=== PATIENT | male | born 1990 | race Caucasian/White ===

== ENCOUNTER 2018-09-13 12:55 | Emergency (ER) | payer SELFPAY ==
[~2018-09-13] VITALS: Ht 177.8 cm; Wt 90.9 kg
[2018-09-13 13:02] VITALS: BP 139/80; PULSE 77; TEMP 98.2
[2018-09-13] MEDS ORDERED: NORCO 325 MG-51 TAB PO (14:39)
== END 2018-09-13 14:53 | disposition home or self-care (01) ==
LOC: COL.ER 12:55
DX: S93.402A Sprain of unspecified ligament of left ankle, initial encounter (principal); X50.0XXA Overexertion from strenuous movement or load, initial encounter; Y92.59 Other trade areas as the place of occurrence of the external cause

== ENCOUNTER → 2018-11-13 | Outpatient (CLI) | payer OTHER ==
[~2018-11-13] MED LIST: NORCO 325 MG-51 TAB PO
== END ==
LOC: COL.RAD 08:14
DX: S93.402A Sprain of unspecified ligament of left ankle, initial encounter (principal); S86.012D Strain of left Achilles tendon, subsequent encounter; M76.72 Peroneal tendinitis, left leg; S93.432A Sprain of tibiofibular ligament of left ankle, initial encounter

== ENCOUNTER 2018-11-14 09:55 | Outpatient (RCR) | payer OTHER | END 2018-12-11 15:16 | disposition home or self-care (01) | LOC: WSOH 09:55 | DX: S93.402D Sprain of unspecified ligament of left ankle, subsequent encounter (principal); S86.012D Strain of left Achilles tendon, subsequent encounter; Y92.89 Other specified places as the place of occurrence of the external cause; W00.0XXA Fall on same level due to ice and snow, initial encounter; Y93.01 Activity, walking, marching and hiking; Y99.0 Civilian activity done for income or pay | CPT/HCPCS: 24774; L1810 ==